=== PATIENT | male | born 1955 | race Hispanic/Latino ===

== ENCOUNTER 2021-11-04 17:29 | Emergency (ER) | payer OTHER ==
[~2021-11-04] VITALS: Ht 175.3 cm; Wt 99.8 kg
[2021-11-04 18:09] LABS: APPEARANCE,URINE Cloudy (CLEAR); BILIRUBIN,URINE Negative (NEGATIVE); COLOR,URINE Yellow (YELLOW); GLUCOSE, URINE (UA) >=1000 mg/dL (NEGATIVE); KETONES,URINE Negative (NEGATIVE); LEUKOCYTE ESTERASE ,URINE Negative (NEGATIVE); NITRATE,URINE Negative (NEGATIVE); OCCULT BLOOD,URINE Large (NEGATIVE); PROTEIN,URINE Trace mg/dL (NEGATIVE)
[2021-11-04 18:22] LABS: BACTERIA,URINE Few /HPF (None Seen); MUCUS,URINE Few LPF (None Seen); RBC,URINE 51-100 /HPF (0-1); SQUAMOUS EPITHELIAL CELL,UR Few /HPF (0-2)
[2021-11-04 19:03] LABS: CREATININE 1.8 mg/dL (0.5-1.5)
[2021-11-04 19:06] LABS: BASOPHILS % (AUTO) 0.5 % (0.0-5.0); EOSINOPHILS % (AUTO) 0.7 % (0.0-8.0); HEMATOCRIT 41.1 % (42-54); LYMPHOCYTES % (AUTO) 16.4 % (21.0-51.0); MEAN CORPUSCULAR HEMOGLOBIN 29.8 pg (27.0-33.0); MEAN CORPUSCULAR HGB CONC 33.1 g/dL (32.0-36.0); MEAN CORPUSCULAR VOLUME 89.9 fL (79-99); MONOCYTES % (AUTO) 6.8 % (3.0-13.0); PLATELET COUNT (AUTO) 175 K/uL (130-400); RED BLOOD CELL COUNT(AUTO) 4.57 MIL/uL (4.50-6.20); RED CELL DISTRIBUTION WIDTH 11.4 % (11.0-15.5); WHITE BLOOD COUNT (AUTO) 12.7 K/uL (4.8-10.8)
[2021-11-04 19:08] LABS: ALBUMIN 3.4 g/dL (3.5-5.0); BILIRUBIN,TOTAL 1.4 mg/dL (0.2-1.0); CRP QUANTITATIVE 25.9 mg/L (0.00-9.0); TOTAL PROTEIN, SERUM 6.6 g/dL (6.0-8.3)
[2021-11-04] MEDS ORDERED: CEPH500B PO (19:22)
[2021-11-04] MEDS ORDERED: CEFTRIAXONE 1G VIAL IVP ONE (19:30)
[2021-11-04] MEDS ORDERED: 0.9%NACL 1000ML 1,000 ML IV ONE (20:00)
[2021-11-04] MEDS ORDERED: HYDROCODONE/ACETAMINOPHEN 10/325 MG TAB PO ONE (21:00)
[2021-11-04 22:00] VITALS: BP 102/60
== END 2021-11-04 22:41 | disposition home or self-care (01) ==
LOC: EDH 17:29
DX: N39.0 Urinary tract infection, site not specified (principal); R31.9 Hematuria, unspecified; E11.9 Type 2 diabetes mellitus without complications; E78.00 Pure hypercholesterolemia, unspecified; I10 Essential (primary) hypertension; Z85.528 Personal history of other malignant neoplasm of kidney
CPT/HCPCS: 36415; 74176; 80053; 81001; 85025; 86140; 96361 ×2; 96374; 99285; J0696; J7030